=== PATIENT | female | born 1955 | race Caucasian/White ===

== ENCOUNTER → 2019-12-05 | Outpatient (CLI) | payer BC ==
[~2019-12-05] MED LIST: Ativan0.5 MG PO; HYDACE5 PO; NEBI5 PO; OMEP10ER; ONDA4ODT MM; RXOXYACE PO; TAMS.4ER PO; XARELTO20 MG PO
== END | disposition home or self-care (01) ==
LOC: LAB SHORT 12:46 → PLD 12:46
DX: L98.0 Pyogenic granuloma (principal)
CPT/HCPCS: 88305

== ENCOUNTER 2024-05-25 07:45 | Emergency (ER) | payer MEDICARE ==
[~2024-05-25] VITALS: Ht 165.1 cm; Wt 83.9 kg
[~2024-05-25 07:45] MED LIST changes: +AMLO10; +ESCI10
[2024-05-25] MEDS ORDERED: Morphine Sulfate 4 MG/1 ML Injection IV ONE (08:20)
[2024-05-25] MEDS ORDERED: NS 1,000 ML IV SCH (08:20)
[2024-05-25] MEDS ORDERED: Ondansetron HCl 2 MG / ML 2ML Vial IV ONE (08:20)
[2024-05-25 08:43] LABS: BASOPHILS ABSOLUTE AUTO 0.03 K/mm3 (0.00-0.23); BASOPHILS PERCENT AUTO 0 % (0-2); EOSINOPHILS ABSOLUTE AUTO 0.01 K/mm3 (0.00-0.68); EOSINOPHILS PERCENT AUTO 0 % (0-6); Hematocrit 42.5 % (33.0-51.0); IMMATURE GRAN ABSOLUTE AUTO 0.05 K/mm3 (0.00-0.10); IMMATURE GRAN PERCENT AUTO 0 % (0-1); LYMPHOCYTES ABSOLUTE AUTO 0.51 K/mm3 (0.84-5.20); LYMPHOCYTES PERCENT AUTO 4 % (21-46); MONOCYTES ABSOLUTE AUTO 0.25 K/mm3 (0.16-1.47); MONOCYTES PERCENT AUTO 2 % (4-13); Mean Corpuscular HGB Conc 32.9 g/dL (31.5-36.5); Mean Corpuscular Volume 88 fL (80-100); Mean Platelet Volume 9.3 fL (9.1-12.4); NEUTROPHILS ABSOLUTE AUTO 12.03 K/mm3 (1.96-9.15); NEUTROPHILS PERCENT AUTO 93 % (41-73); Platelet Count 354 K/mm3 (150-400); RDW Coefficient Variation 13.7 % (11.7-14.2); RDW Standard Deviation 44.4 fL (35.1-46.3); Red Blood Cell Count 4.83 M/mm3 (3.80-5.20); White Blood Cell Count 12.88 K/mm3 (4.00-11.30)
[2024-05-25] MEDS ORDERED: HYDROmorphone HCl/Pf 1MG SYR IV ONE (08:55)
[2024-05-25 09:05] LABS: Albumin, Blood 3.8 g/dL (3.4-5.0); Bilirubin, Total 0.3 mg/dL (0.1-1.0); Bun/Creatinine Ratio 20.2 (12.0-20.0); Creatinine, Blood 0.69 mg/dL (0.40-1.00); Globulin, Blood 3.8 g/dL (2.2-4.0); Potassium, Blood 3.4 mmol/L (3.5-5.5); Total Protein, Blood 7.6 g/dL (6.4-8.2)
[2024-05-25 10:59] LABS: Source, Urine Clean Catch
[2024-05-25 11:11] LABS: Appearance, Urine Hazy (Clear); Bilirubin, Urine Neg (Neg); Blood, Urine 5+ (Neg); Color, Urine Yellow (P-Yellow); Glucose Qualitative, Urine Neg (Neg); Ketones, Urine Neg (Neg); Leukocyte Esterase, Urine Neg (Neg); Nitrite, Urine Neg (Neg); Protein, Urine 2+ (Neg); Urobilinogen, Urine NORM (Normal)
[2024-05-25 11:21] LABS: White Blood Cells, Urine 0-2 /hpf (0-5)
[2024-05-25 11:22] LABS: Red Blood Cells, Urine 50-100 /hpf (0-2)
[2024-05-25 11:23] LABS: Bacteria Few /hpf; Squamous Epithelial Cells Rare /hpf (Few)
[2024-05-25 11:24] LABS: Amorphous Light (0-Heavy)
[2024-05-25] MEDS ORDERED: TAMS.4ER PO (11:30)
[2024-05-25] MEDS ORDERED: ACET500 PO (11:30)
[2024-05-25] MEDS ORDERED: OXYACE7.5T PO (11:35)
[2024-05-25] MEDS ORDERED: ONDA4 PO (11:35)
[2024-05-25 11:54] VITALS: BP 107/56
== END 2024-05-25 11:55 | disposition home or self-care (01) ==
LOC: ER 07:45
PROVIDERS: Emergency Medicine
DX: N13.2 Hydronephrosis with renal and ureteral calculous obstruction (principal); K86.9 Disease of pancreas, unspecified; E78.5 Hyperlipidemia, unspecified; J45.909 Unspecified asthma, uncomplicated; I48.91 Unspecified atrial fibrillation; Z88.0 Allergy status to penicillin; Z88.1 Allergy status to other antibiotic agents; Z88.2 Allergy status to sulfonamides; Z79.899 Other long term (current) drug therapy
CPT/HCPCS: 74177; 80053; 81001; 83690; 83735; 85025; 96361; 96374-59; 96375; 99284-25; J1171; J2270; J2405; J7030; Q9967

== ENCOUNTER → 2024-06-25 | Outpatient (CLI) | payer MEDICARE ==
[~2024-06-25] MED LIST changes: +ACET500 PO; +ONDA4 PO; +OXYACE7.5T PO
== END ==
LOC: LAB SHORT 07:42 → LAB 07:42
DX: R21 Rash and other nonspecific skin eruption (principal)
CPT/HCPCS: 88305; 88312